=== PATIENT | female | born 1980 | race American Indian/Alaskan Native ===

== ENCOUNTER 2016-12-28 00:21 | Emergency (ER) | payer OTHER ==
[2016-12-28] MEDS ORDERED: PEPCID ONE (01:24)
[2016-12-28] MEDS ORDERED: BENADRYL PO ONE ×4 (01:24→04:37)
[2016-12-28] MEDS ORDERED: PEPCID PO ONE (04:35)
[2016-12-28] MEDS ORDERED: TYLENOL/CODEINE PO ONE (04:55)
--- NOTE | 2016-12-28 04:59 | Emergency Department Report ---
HPI - General Chief Complaint: Allergic Reaction Time Seen by Provider: 12/28/16 04:55 - HPI HPI: PThe patient is a 36-year-old female who presents to ED complaining of 10/10 pain in the right side of her mouth. Patient states she noticed swelling when she woke up this morning and swelling of the bigger. . Patient states that the pain has increased in severity since this am. The pain is exacerbated by eating and opening of the mouth. Patient states the pain is alleviated initially with pain medication but comes back. Patient states that it radiates towards ear. Patient describes a as a throbbing, pressure-like sensation. Patient states otherwise well and has no other complaints. Patient has had no fevers and no chills. No chest pain, no shortness of breath. No abdominal pain. No shortness of breath or recent trauma to the face. ED Past Medical Hx - Past Medical History Previous Medical History?: Yes Hx Hypertension: Yes Additional medical history: SINUS - Surgical History Past Surgical History?: No - Social History Smoking Status: Never Smoker Substance Use Type: None - Medications Home Medications: Home Medications Medication Instructions Recorded Confirmed Last Taken Type Acetamin/Codeine 120-12Mg/5 ml 10 ml PO BID #70 oral.liqd 12/28/16 Unknown Rx [Tylenol/Codeine 120-12 mg/5 ml] Clindamycin [Clindamycin CAP] 600 mg PO BID #20 capsule 12/28/16 Unknown Rx ED Review of Systems ROS: Stated complaint: FACIAL SWELLING Other details as noted in HPI Constitutional: denies: chills, fever Eyes: denies: eye pain, eye discharge, vision change ENT: denies: ear pain, throat pain, dental pain, hearing loss, epistaxis Respiratory: denies: cough, shortness of breath, wheezing Cardiovascular: denies: chest pain, palpitations Endocrine: no symptoms reported Gastrointestinal: denies: abdominal pain, nausea, vomiting, diarrhea, constipation, hematemesis Genitourinary: denies: urgency, dysuria, frequency, hematuria, discharge Musculoskeletal: denies: back pain, joint swelling, arthralgia Skin: denies: rash, lesions Neurological: denies: headache, weakness, paresthesias Psychiatric: denies: anxiety, depression Hematological/Lymphatic: denies: easy bleeding, easy bruising Physical Exam - Physical Exam Vital Signs: Vital Signs 12/28/16 01:16 Temperature 99.8 F H Pulse Rate 117 H Respiratory 18 Rate Blood Pressure 158/112 O2 Sat by Pulse 100 Oximetry Physical Exam: GENERAL: Alert and oriented x3, no apparent distress, Normal Gait, atraumatic. HEAD: Head is normocephalic and a-traumatic. EYES: Extra ocular muscles are intact. Pupils are equal, round, and reactive to light and accommodation. EARS: symetrical, atraumatic, non tender, ear canal clear and moderate cerumen, tympanic membrance non inflamed. gross auditory nml bilaterally. NOSE: Nose symetrical, Nontender,Nares appeared normal. MOUTH:Mouth is well hydrated and without lesions. Tonsils nonerythematous or swollen, Uvula midline, Tongue not elevated. Mucous membranes are moist. Posterior pharynx clear, no exudate or lesions. Patent airways. Right lower jaw edema, tenderness to palpation of the right lower jaw. NECK: Supple. Non edematous, No carotid bruits. No lymphadenopathy or thyromegaly. LUNGS: Symetrical with respiration, No wheezing, no rales or crackles, CTAB. HEART: S1, S2 present, regular rate and rhythm without murmur, no rubs, no gallops. ABDOMEN: No organomegaly was noted,Positive bowel sounds, soft, and non- distended. . Nontender to palpation on all Quadrants, NO CVA tenderness. EXTREMITIES/MUSCULOSKELETAL: No cyanosis, clubbing, rash, lesions or edema. Full ROM bilaterally. UE Pulses 2+ bilaterally. NEUROLOGIC: No focal Deficit, Cranial nerves II through XII are grossly intact. No loss of sensation, PSYCHIATRIC: Mood is congruent with affect, denies suicidal or homicidal ideations. SKIN: Warm and dry, No lesions, No ulceration or induration present. ED Course Vital Signs 12/28/16 01:16 Temperature 99.8 F H Pulse Rate 117 H Respiratory 18 Rate Blood Pressure 158/112 O2 Sat by Pulse 100 Oximetry ED Medical Decision Making - Medical Decision Making 36-year-old female presents with a dental abscess and serous otitis media. Discussed with patient change her antibiotics. Patient received 50 mg of Benadryl and 20 mg of Pepcid in triage. Discussed the patient to take antibiotics as prescribed. Discussed the patient follow up with her primary care physician. Patient is in no acute respiratory distress. Discussed referrals given and to follow-up. Discussed need for dentists as referred. Critical care attestation.: If time is entered above; I have spent that time in minutes in the direct care of this critically ill patient, excluding procedure time. ED Disposition Clinical Impression: Gingival abscess, Dental abscess Otitis media Qualifiers: Otitis media type: serous Laterality: right Chronicity: unspecified Qualified Code(s): H65.91 - Unspecified nonsuppurative otitis media, right ear Disposition: DISCHARGED TO HOME OR SELFCARE Is pt being admited?: No Does the pt Need Aspirin: No Condition: Stable Instructions: Otitis Media (ED), Dental Abscess (ED), Abscess (ED) Additional Instructions: Follow-up with PCP physician. Prescriptions: Acetamin/Codeine 120-12Mg/5 ml [Tylenol/Codeine 120-12 mg/5 ml] 10 ml PO BID # 70 oral.liqd Clindamycin [Clindamycin CAP] 600 mg PO BID #20 capsule Referrals: PRIMARY CARE, [Primary Care Provider] - 3-5 Days [facility] [Outside] - 3-5 Days [facility] [Outside] - 3-5 Days [facility] [Outside] - 3-5 Days [facility] [Outside] - 3-5 Days Forms: Work/School Release Form(ED), Accompanied Note Time of Disposition: 05:04
[2016-12-28 06:36] VITALS: BP 146/88
== END 2016-12-28 05:00 | disposition home or self-care (01) ==
LOC: ED 00:21
DX: K05.219 Aggressive periodontitis, localized, unspecified severity (principal); K04.7 Periapical abscess without sinus; H65.91 Unspecified nonsuppurative otitis media, right ear; I10 Essential (primary) hypertension
CPT/HCPCS: 99282